=== PATIENT | male | born 1995 | race Caucasian/White ===

== ENCOUNTER 2017-02-17 12:11 | Emergency (ER) | payer OTHER ==
[~2017-02-17] VITALS: Ht 170.2 cm; Wt 66.0 kg
[2017-02-17 12:15] VITALS: TEMP 37.3
[2017-02-17] MEDS ORDERED: SODIUM CHLORIDE 0.9% 1000ML 1,000 ML IV STA ×2 (12:20→13:21)
[2017-02-17 12:31] VITALS: O2SAT 97
[2017-02-17 12:35] VITALS: Ht 170.2 cm; Wt 66.0 kg
--- NOTE | 2017-02-17 12:38 | DIAGNOSTIC IMAGING REPORT ---
SINGLE VIEW CHEST CLINICAL HISTORY: Generalized weakness. FINDINGS: An AP, portable, upright chest radiograph is obtained. No prior studies are available for comparison at the time of dictation. The examination is degraded by portable technique and patient rotation. The cardiomediastinal silhouette is unremarkable. The lungs and pleural spaces are clear. No pneumothorax is seen. The bony thorax is grossly intact. IMPRESSION: No active disease in the chest. Electronically signed by: Epifanio Overton M.D. 02/17/2017 12:36 PM Dictated Date/Time: 02/17/2017 12:36 PM
[2017-02-17 12:42] LABS: BASO % 0.2 %; BASO ABS # 0.03 K/uL (0-0.2); COMPLETE YES; EOS % 0.6 %; HEMATOCRIT 48.1 % (42-52); IG% 0.2 %; LYMPH % 15.6 %; LYMPH ABS # 1.93 K/uL (1.2-3.4); MEAN CELL VOLUME 84.2 fL (80-100); MEAN CORPUSCULAR HEMOGLOBIN 29.4 pg (25-34); MEAN CORPUSCULAR HGB CONC 34.9 g/dl (32-36); MEAN PLATELET VOLUME 10.1 fL (7.4-10.4); MONO % 7.2 %; NEUT % 76.2 %; PLATELET COUNT 280 K/uL (130-400); RED BLOOD COUNT 5.71 M/uL (4.7-6.1); WHITE BLOOD COUNT 12.34 K/uL (4.8-10.8)
[2017-02-17 12:49] LABS: INR 1.1 (0.9-1.1); PARTIAL THROMBOPLASTIN RATIO 1.1; PROTHROMBIN TIME (PATIENT) 11.7 SECONDS (9.0-12.0)
[2017-02-17 12:54] LABS: MAGNESIUM 2.5 mg/dl (1.8-2.4); POTASSIUM 3.6 mmol/L (3.5-5.1)
[2017-02-17 13:04] LABS: THYROID STIMULATING HORMONE 0.76 uIu/ml (0.300-4.500)
[2017-02-17 13:54] LABS: MANUAL MICROSCOPIC REQUIRED? YES; URINE APPEARANCE CLEAR (CLEAR); URINE BILIRUBIN NEG (NEG); URINE COLOR YELLOW; URINE NITRITE NEG (NEG); UROBILINOGEN NEG (NEG)
[2017-02-17 13:58] LABS: REVIEW REQ? NO
--- NOTE | 2017-02-17 14:01 | EMERGENCY ROOM VISIT NOTE ---
History Report prepared by Omer: Mesfin Ramirez Under the Supervision of: Dr. Dao Guidry M.D. First contact with patient: 12:18 Chief Complaint: TACHYCARDIA Stated Complaint: FAST HEARTRATE Nursing Triage Summary: triage note; pt reports he has had a fast heart rate since yesterday. pt reports feeling dizzy. History of Present Illness The patient is a 21 year old middle-eastern male who presents to the ED with a cc of constant heart palpitations beginning 15 hours ago. Had an episode of lightheadedness with standing rapidly. History of similar symptoms, though not as severe. No recent medication changes. Takes Adderall occasionally to aid in studying, but is not prescribed it. Most recent Adderall use was yesterday morning. Denies recent alcohol or drug use otherwise. Notes he has felt stressed about school recently. Source of History: patient Onset: 15 hours ago Quality: other (heart palpitations) Timing: constant Note: Additional symptoms: lightheadedness with standing. Review of Systems See HPI for pertinent positives and negatives. A total of ten systems were reviewed and were otherwise negative. Past Medical & Surgical Medical Problems: (1) No Known Active Medical Problems Surgical Problems: (1) Previous back surgery Family History No pertinent family history stated. Social History Smoking Status: Never Smoker Occupation Status: [employer] student Current/Historical Medications No Active Prescriptions or Reported Meds Allergies Coded Allergies: No Known Allergies (Unverified , 02/17/17) Physical Exam Vital Signs Date Time Temp Pulse Resp B/P (MAP) Pulse Ox O2 Delivery O2 Flow Rate FiO2 02/17/17 14:58 108 20 02/17/17 14:34 100 18 125/70 100 Room Air 02/17/17 13:02 100 02/17/17 12:31 97 Room Air 02/17/17 12:15 37.3 128 18 136/81 99 Room Air Physical Exam GENERAL: Awake, alert, well-appearing, NAD HENT: Normocephalic, atraumatic. EYES: Normal conjunctiva. Sclera non-icteric. NECK: Supple. No nuchal rigidity. FROM. RESPIRATORY: CTAB, no rhonchi, wheezing, crackles CARDIAC: tachycardic rate, regular rhythm, no MRG ABDOMEN: Soft, NTND, BS+ MSK: No chest wall TTP, no LE edema or asymmetry. No calf pain, calor or erythema. NEURO: GCS 15, CN 2-12 intact, moves all 4s on command SKIN: No rash or jaundice noted. Medical Decision & Procedures ER Provider Diagnostic Interpretation: X-ray: Per my interpretation, radiologist review. SINGLE VIEW CHEST FINDINGS: An AP, portable, upright chest radiograph is obtained. No prior studies are available for comparison at the time of dictation. The examination is degraded by portable technique and patient rotation. The cardiomediastinal silhouette is unremarkable. The lungs and pleural spaces are clear. No pneumothorax is seen. The bony thorax is grossly intact. IMPRESSION: No active disease in the chest. Electronically signed by: Epifanio Overton M.D. 02/17/2017 12:36 PM Laboratory Results 02/17/17 12:23 Red Blood Count 5.71, Mean Corpuscular Volume 84.2, Mean Corpuscular Hemoglobin 29.4, Mean Corpuscular Hemoglobin Concent 34.9, Mean Platelet Volume 10.1, Neutrophils (%) (Auto) 76.2, Lymphocytes (%) (Auto) 15.6, Monocytes (%) (Auto) 7.2, Eosinophils (%) (Auto) 0.6, Basophils (%) (Auto) 0.2, Neutrophils # (Auto) 9.40, Lymphocytes # (Auto) 1.93, Monocytes # (Auto) 0.89, Eosinophils # (Auto) 0.07, Basophils # (Auto) 0.03 02/17/17 12:23 Test 02/17/17 12:23 02/17/17 13:30 White Blood Count 12.34 K/uL (4.8-10.8) Red Blood Count 5.71 M/uL (4.7-6.1) Hemoglobin 16.8 g/dL (14.0-18.0) Hematocrit 48.1 % (42-52) Mean Corpuscular Volume 84.2 fL (80-100) Mean Corpuscular Hemoglobin 29.4 pg (25-34) Mean Corpuscular Hemoglobin Concent 34.9 g/dl (32-36) Platelet Count 280 K/uL (130-400) Mean Platelet Volume 10.1 fL (7.4-10.4) Neutrophils (%) (Auto) 76.2 % Lymphocytes (%) (Auto) 15.6 % Monocytes (%) (Auto) 7.2 % Eosinophils (%) (Auto) 0.6 % Basophils (%) (Auto) 0.2 % Neutrophils # (Auto) 9.40 K/uL (1.4-6.5) Lymphocytes # (Auto) 1.93 K/uL (1.2-3.4) Monocytes # (Auto) 0.89 K/uL (0.11-0.59) Eosinophils # (Auto) 0.07 K/uL (0-0.5) Basophils # (Auto) 0.03 K/uL (0-0.2) RDW Standard Deviation 37.3 fL (36.4-46.3) RDW Coefficient of Variation 12.4 % (11.5-14.5) Immature Granulocyte % (Auto) 0.2 % Immature Granulocyte # (Auto) 0.02 K/uL (0.00-0.02) Prothrombin Time 11.7 SECONDS (9.0-12.0) Prothromb Time International Ratio 1.1 (0.9-1.1) Activated Partial Thromboplast Time 29.6 SECONDS (21.0-31.0) Partial Thromboplastin Ratio 1.1 Anion Gap 10.0 mmol/L (3-11) Est Creatinine Clear Calc Drug Dose 108.2 ml/min Estimated GFR () 123.3 Estimated GFR (Non- 106.4 BUN/Creatinine Ratio 15.0 (10-20) Calcium Level 10.0 mg/dl (8.5-10.1) Magnesium Level 2.5 mg/dl (1.8-2.4) Thyroid Stimulating Hormone (TSH) 0.760 uIu/ml (0.300-4.500) Urine Color YELLOW Urine Appearance CLEAR (CLEAR) Urine pH 6.0 (4.5-7.5) Urine Specific [place] 1.020 (1.000-1.030) Urine Protein NEG (NEG) Urine Glucose (UA) NEG (NEG) Urine Ketones 2+ (NEG) Urine Occult Blood TRACE (NEG) Urine Nitrite NEG (NEG) Urine Bilirubin NEG (NEG) Urine Urobilinogen NEG (NEG) Urine Leukocyte Esterase NEG (NEG) Urine RBC 0-4 /hpf (0-4) Urine WBC 1-5 /hpf (0-5) Urine Epithelial Cells 0-5 /lpf (0-5) Urine Bacteria NEG (NEG) Urine Mucus PRESENT (NONE PRSENT) .Laboratory results reviewed by me Medications Administered Medications (Trade) Dose Ordered Sig/Asif Route Start Time Stop Time Status Last Admin Dose Admin Sodium Chloride 1,000 ml @ 999 mls/hr Q1H1M STAT IV 02/17/17 12:20 02/17/17 13:20 DC 02/17/17 12:20 999 MLS/HR Sodium Chloride 1,000 ml @ 999 mls/hr Q1H1M STAT IV 02/17/17 13:21 02/17/17 14:21 DC 02/17/17 13:21 999 MLS/HR ECG Indication: palpitations Rate (beats per minute): 123 Rhythm: sinus tachycardia Findings: no ectopy, other (Normal intervals. No STS changes or TWI. ) ED Course 1222: The patient was evaluated in room B2. A complete history and physical exam was performed. 1220: Ordered Sodium Chloride 1000 ml @ 999 mls/hr IV. 1321: Ordered Sodium Chloride 1000 ml @ 999 mls/hr IV. 1445: I reevaluated the patient. Discussed results and discharge instructions: he verbalized understanding and agreement. The patient is ready for discharge. Medical Decision The patient is a 21 year old middle-eastern male who presents to the ED with a cc of constant heart palpitations beginning 15 hours ago. Differential diagnosis includes etiologies such as cardiac ischemia, aortic dissection, pulmonary embolism, pneumonia, pneumothorax, musculoskeletal, infections, pericarditis, myocarditis, esophageal rupture, gastrointestinal, as well as others were entertained. Patient was seen and evaluated at the bedside. Patient states that his resting heart rate is to around 90. He is noticed and elevation for approximately 15 hours that began last evening. Patient does state that he does take Adderall but is not prescribed this medication. He last took it yesterday morning. Patient denies any changes in medications does not use any stimulants or cocaine. Patient also denies any other sort of supplements were caffeinated beverages. Patient does state he has had an increased amount of stress with regard to school as he is a senior majoring in computer science. Patient's fairly well-appearing otherwise patient did mention that he had some positional like syncope where he thinks he had LOC for approximately one second upon standing very quickly. She states that this is happened before. Patient denies any chest pain. Patient has had some mild shortness of breath without any cough fevers or chills. No recent car or plane travel and lower extremity swelling, no history of DVT or PE. UA neg. Patient Wells of 1 for tachycardia, otherwise low risk at this time. Less likely especially in light of recent Adderall use. Tachycardia did improved. Advised not to use medicines he's not prescribed. Patient given f/u, d/c, and return precautions and was d/c'ed to home. Medication Reconcilliation Current Medication List: was personally reviewed by me Blood Pressure Screening Patient's blood pressure: Elevated blood pressure Blood pressure disposition: Elevated BP felt to be situational Impression Primary Impression: Tachycardia Scribe Attestation The scribe's documentation has been prepared under my direction and personally reviewed by me in its entirety. I confirm that the note above accurately reflects all work, treatment, procedures, and medical decision making performed by me. Departure Information Dispostion Home / Self-Care Prescriptions No Active Prescriptions or Reported Meds Referrals No Doctor, Assigned (PCP) Patient Instructions My [facility], Tachycardia Additional Instructions Please return to the emergency department if you have worsening or recurrent symptoms not amenable to at-home treatment. Please call for a follow-up appointment with her primary care physician. Please take your medications as prescribed. If you have other concerns and/or complaints please feel free to also call your primary care physician's office or return the ED for further evaluation, management, and treatment. You may take 600 mg Ibuprofen every 6 hours as needed for pain with food for no more than 2 consecutive days. You may take tylenol 1000mg every 6 hours as needed for pain. You may take motrin and tylenol separately or at the same time. You have been examined and treated today on an emergency basis only. This is not a substitute for, or an effort to provide, complete comprehensive medical care. It is impossible to recognize and treat all injuries or illnesses in a single emergency department visit. It is therefore important that you follow up closely with [facility]. Call as soon as possible for an appointment. Thank you for your time and consideration. I look forward to speaking with you again soon. Please don't hesitate to call us if you have any questions.
[2017-02-17 14:14] LABS: URINE BACTERIA NEG (NEG); URINE MUCUS PRESENT (NONE PRSENT); URINE RBC 0-4 /hpf (0-4)
[2017-02-17 14:34] VITALS: BP 125/70; O2SAT 100
[2017-02-17 14:58] VITALS: PULSE 108
== END 2017-02-17 15:00 | disposition home or self-care (01) ==
LOC: C.EDB 12:13
DX: R00.0 Tachycardia, unspecified (principal)